=== PATIENT | female | born 1940 ===

== ENCOUNTER 2017-07-12 17:09 | Emergency (ER) | payer OTHER ==
[~2017-07-12] VITALS: Ht 160 cm; Wt 65.8 kg
== END 2017-07-13 00:28 | disposition home or self-care (01) ==
LOC: ER 17:09 → CPU-OBS 17:31 → ER 07-13 00:28
DX: R07.89 Other chest pain (principal); M94.0 Chondrocostal junction syndrome [Tietze]; G89.11 Acute pain due to trauma; M25.512 Pain in left shoulder; M25.511 Pain in right shoulder

== ENCOUNTER 2018-04-22 15:49 | Emergency (ER) | payer OTHER ==
[~2018-04-22] VITALS: Ht 160 cm; Wt 62.6 kg
[2018-04-22] MEDS ORDERED: SYNTHROID125 MCG (16:14)
== END 2018-04-22 18:15 | disposition home or self-care (01) ==
LOC: ER 15:49
DX: L72.3 Sebaceous cyst (principal)